=== PATIENT | female | born 1990 | race Caucasian/White ===

== ENCOUNTER 2017-11-04 08:43 | Emergency (ER) | payer OTHER, MEDICAID, SELFPAY ==
[2017-11-04 08:45] VITALS: BP 125/82; PULSE 92; RESP 18; O2SAT 98; BMI 25.0
--- NOTE | 2017-11-04 09:37 | ED.URI ---
HPI - URI/Sore Throat General Chief Complaint: Upper Respiratory Symptoms Stated Complaint: COLD FOR TWO WEEKS,CHEST PAIN Time Seen by Provider: 11/04/17 09:26 Source: patient Mode of arrival: ambulatory Limitations: no limitations History of Present Illness HPI Narrative: Patient is a 26-year-old female who says that she has been sick for about 3 weeks. She has had upper respiratory like symptoms. She has got some nasal congestion or runny nose. Now she feels like her chest is tight and she cannot breathe. She has not had any fever or productive cough. She admits to smoking daily but no other medical history. She says yesterday she lost her voice some today is a little bit better. Mild sore throat. MD Complaint: cough, sore throat and nasal congestion Severity: mild Associated symptoms: voice changes and nasal congestion Related Data Previous Rx's Medication Instructions Recorded cyclobenzaprine 10 mg PO Q8H PRN #14 tab 09/21/17 ibuprofen 800 mg PO TID PRN #30 tab 09/21/17 albuterol sulfate [Ventolin HFA] 2 puff INHALATION Q4-6H PRN #8 gram 11/04/17 Allergies Allergy/AdvReac Type Severity Reaction Status Date / Time No Known Drug Allergies Allergy Verified 11/04/17 08:48 Review of Systems Review of Systems All systems reviewed & are unremarkable except as noted in HPI and below Constitutional Denies chills, Denies fever(s), Denies lethargy and Denies weakness ENT Ears, Nose, Mouth, and Throat: Denies change in voice, Reports hoarseness (now better), Reports nasal congestion, Reports nasal discharge, Denies neck pain and Reports sore throat Cardiovascular Denies chest pain, Denies irregular heart rhythm, Denies lightheadedness, Denies palpitations and Denies orthopnea Respiratory Reports as per HPI Gastrointestinal Gastrointestinal: Denies abdominal pain, Denies change in bowel habits, Denies diarrhea, Denies nausea and Denies vomiting Musculoskeletal Denies neck pain Integumentary/Breasts Denies pruritus, Denies erythema, Denies rash and Denies wounds Neurologic Denies weakness Endocrine Denies palpitations PFSH Medical History Healthy adult (Acute) Social History Smoking Status: Current every day smoker alcohol intake: never substance use type: does not use Exam Initial Vital Signs Initial Vital Signs: Vital Signs Pulse Rate 92 H 11/04/17 08:45 Respiratory Rate 18 11/04/17 08:45 Blood Pressure 125/82 H 11/04/17 08:45 Pulse Oximetry 98 11/04/17 08:45 GENERAL: Well-appearing, well-nourished and in no acute distress. HEENT: Head atraumatic,EOMI, pupils reactive, no sinus tenderness PHARYNX: No erythema, no tonsillar exudate, no cervical lymphadenopathy CARDIOVASCULAR: Regular rate and rhythm without murmurs, rubs or gallops. RESPIRATORY: Breath sounds equal bilaterally, no wheezes rales or rhonchi. ABDOMEN: Soft, nontender. Normoactive bowel sounds all 4 quadrants. No guarding or rebound. EXTREMITIES: Normal range of motion, no clubbing or edema. Neurovascularly intact NEUROLOGICAL: Alert and oriented x4.Normal gait and speech. SKIN: Warm, dry, no laceration, no petechiae, no rashes or lesions. Course Orders Ordered: Discontinued Medications Albuterol/Ipratropium (Duoneb) 3 ml INH NOW ONE Stop: 11/04/17 09:37 Last Admin: 11/04/17 09:58 Dose: 3 ml Vital Signs - 8 hr 11/04/17 08:45 11/04/17 09:59 11/04/17 10:04 Pulse Rate 92 H 70 84 Respiratory Rate 18 16 18 Blood Pressure 125/82 H Blood Pressure [Right Arm] 110/53 L Pulse Oximetry 98 100 100 Discharge Plan Departure Patient Disposition: Home, Self-Care Clinical Impression: Upper respiratory infection Discharge Date/Time: 11/04/17 10:12 Interventions: ED Discharge Assessment Last Done: 11/04/17 10:11 Instructions: DI for Viral Upper Respiratory Infection -- Adult Activity Restrictions/Additional Instructions: *You have been diagnosed with upper respiratory infection *What to do: At this time no antibiotics are indicated. This likely a combination of a virus and no allergies. Recommend [id number] allergy medicine. *Continue to take medications as directed Albuterol with spacer every 4 hr if needed for chest tightness or shortness of breath, use with spacer. This prescription has been sent to [facility] in [place] *Follow up with your primary care provider in 2-3 days *Return to ER if you should have any new, worsening or concerning symptoms Prescriptions: New albuterol sulfate [Ventolin HFA] 90 mcg/actuation HFA aerosol inhaler 2 puff INHALATION Q4-6H PRN (Reason: shortness of breath or wheezing) Qty: 8 RF: 0 No Action ibuprofen 800 mg tablet 800 mg PO TID PRN (Reason: pain) Qty: 30 RF: 0 cyclobenzaprine 10 mg tablet 10 mg PO Q8H PRN (Reason: muscle spasm) Qty: 14 RF: 0
[2017-11-04] MEDS: ALBUTEROL/IPRATROPIUM 3 ML AMPUL INH (09:58)
[2017-11-04 09:59] VITALS: PULSE 70; RESP 16; O2SAT 100
[2017-11-04 10:04] VITALS: BP 110/53; PULSE 84; RESP 18; O2SAT 100
== END 2017-11-04 10:12 | disposition home or self-care (01) ==
LOC: ED 10:11
PROVIDERS: Emergency Provider Emergency Medicine; Family Provider Family Medicine; PCP Family Medicine
DX: J06.9 Acute upper respiratory infection, unspecified (principal)
CPT/HCPCS: 94640; 99282; 99283

== ENCOUNTER → 2017-12-05 16:53 | Outpatient (CLI) | payer OTHER, MEDICAID, SELFPAY | PROVIDERS: Family Provider Family Medicine; PCP Family Medicine; Visit Provider Physician Assistant | DX: R30.0 Dysuria (principal) | CPT/HCPCS: 87077; 87086; 87186 ==

== ENCOUNTER → 2018-04-03 10:41 | Outpatient (CLI) | payer OTHER, MEDICAID, SELFPAY ==
--- NOTE | 2018-04-03 10:42 | DI.US.S_ITS ---
PROCEDURE: US OB <= 14 WEEKS FETUS INDICATIONS: DATES OUTSIDE/PRIOR DATING DATA: Last menstrual period (LMP): Unknown. LMP-based estimated date of delivery (MALIK): N./A.. First dating scan (date and location): 04/03/18. Estimated date of delivery (MALIK) from first dating scan: 11/23/18. TECHNIQUE: Real-time scanning was performed of the fetus and maternal pelvic organs, with image documentation. Endovaginal scanning was also performed to better visualize the fetus and maternal ovaries. COMPARISON: None. FINDINGS: Embryo: [place]-rump length measures 7 mm corresponding to 6 weeks 4 days. Heart rate measures 124 beats per minute. Measurement variability in dating: +/- 4 weeks by LMP, +/- 7 days by mean sac diameter (use before 6 weeks gestation if crown-rump length not able to be measured), +/- 5 days by crown-rump length (up to 8 weeks 6 days gestation), +/- 7 days by crown-rump length (up to 13 weeks 6 days gestation). Maternal organs: Ovaries within normal limits, with a corpus luteal cyst measuring 20 mm. Limited images through the kidneys demonstrate no hydronephrosis. IMPRESSION: 6 week 4 day single living IUP. Dictated by: Karthik Ramírez A Interpreted: Vera Ron MD on 04/03/2018 at 11:33 Approved by: Vera Ron M.D. on 04/03/2018 at 15:39
[2018-04-03 12:22] LABS: Appearance Urine UA CLEAR; Bilirubin Urine UA NEGATIVE (NEGATIVE); Color Urine UA YELLOW; Glucose Urine UA NEGATIVE (Normal); Ketones Urine UA NEGATIVE (NEGATIVE); Leukocyte Esterase Urine UA NEGATIVE (NEGATIVE); Nitrite Urine UA NEGATIVE (Negative); Occult Blood Urine UA 1+ (Negative); Protein Urine UA NEGATIVE (Negative); Specific Gravity Urine UA 1.015 (1.000-1.035); Urobilinogen Urine UA 0.2 E.U./dL (0.2)
[2018-04-03 12:40] LABS: Add Manual Diff / Slide Review NO; Basophils Percent Auto 0.3 % (0-2); Eosinophils Percent Auto 0.6 % (2-4); Hematocrit 38.3 % (36-46); Hemoglobin 13.8 g/dL (12.0-16.0); Lymphocytes Percent Auto 17.3 % (25-40); Mean Corpuscular HGB Conc 35.9 % (30-36); Mean Corpuscular Hemoglobin 30.5 PG (26-34); Mean Corpuscular Volume 84.8 fL (80-100); Monocytes Percent Auto 6.1 % (3-14); Neutrophils Absolute Auto 5800 /uL (3000-5900); Neutrophils Percent Auto 75.7 % (50-75); Platelet Count 240 X10^3/uL (150-400); Red Blood Cell Count 4.51 X10^6/uL (4.0-5.2); Red Cell Distribution Width 14.1 % (11.6-14.8); White Blood Cell Count 7.6 X10^3/uL (4.5-11.0)
[2018-04-03 13:58] LABS: Hepatitis B Surface Antigen NEGATIVE s/c (NEGATIVE); Rubella Antibody IgG 50.6 IU/mL (>15)
[2018-04-03 14:17] LABS: HIV 1 and 2 Antibody NEGATIVE (NEGATIVE); Hep C Virus Ab w/Reflex Quant NEGATIVE s/c (NEGATIVE)
[2018-04-05 14:05] LABS: HSV 2 IGG AB < 0.90 index (< 0.90)
[2018-04-05 15:40] LABS: RPR Screen Nonreactive (Nonreactive)
== END ==
PROVIDERS: Visit Provider Family Medicine
DX: Z34.81 Encounter for supervision of other normal pregnancy, first trimester (principal); Z3A.01 Less than 8 weeks gestation of pregnancy
CPT/HCPCS: 36415; 76801; 76817; 80055; 81003; 86695; 86696; 86703; 86787; 86803; 86850; 86900; 86901; 87086

== ENCOUNTER → 2018-07-03 08:45 | Outpatient (CLI) | payer OTHER, MEDICAID, SELFPAY ==
[2018-07-08 10:39] LABS: AFP, Serum 49.4 ng/mL; Calc Gestational Age 19.6; Cigarette Smoker N; Donated Egg NOT GIVEN; Donor Egg Age NOT GIVEN; Estriol, Free 1.87 ng/mL; Inhibin A, Dimeric 113 pg/mL; Maternal Weight 155 lbs; Number of Fetuses 1; Previous Pregnancy Down Syndro NOT GIVEN
== END ==
PROVIDERS: Visit Provider Family Medicine
DX: Z3A.16 16 weeks gestation of pregnancy (principal)
CPT/HCPCS: 36415; 82105; 82677; 84702; 86336

== ENCOUNTER → 2018-07-05 11:43 | Outpatient (CLI) | payer OTHER, MEDICAID, SELFPAY | PROVIDERS: Visit Provider Family Medicine | DX: R31.9 Hematuria, unspecified (principal) | CPT/HCPCS: 87086 ==

== ENCOUNTER → 2018-07-16 10:37 | Outpatient (CLI) | payer OTHER, MEDICAID, SELFPAY ==
--- NOTE | 2018-07-16 10:38 | DI.US.S_ITS ---
PROCEDURE: US OB >= 14 WEEKS FETUS INDICATIONS: ANATOMY SCREENING OUTSIDE/PRIOR DATING DATA: Last menstrual period (LMP): Unknown. LMP-based estimated date of delivery (MALIK): Cannot be calculated. First dating scan (date and location): [facility], 04/03/18. Estimated date of delivery (MALIK) from first dating scan: 11/23/18. TECHNIQUE: Real-time scanning was performed of the fetus, with image documentation and biometric measurements. COMPARISON: [facility], OB <= 14 WEEKS FETUS, 04/03/2018, 11:04. [facility], PELVIC COMPLETE, 10/27/2016, 8:03. [facility], ABDOMEN LIMITED, 05/06/2016, 9:02. [facility], OB COMPLETE 14WKS OR MORE, 05/08/2014, 10:30. FINDINGS: General: A single living intrauterine gestation is present. Presentation: Breech. Placenta: Placental position is anterior, without previa. Amniotic fluid index: 15.0 cm. heart rate: 137 beats per minute. Maternal cervical canal: 3.9 cm long. Maternal organs: Left ovary measures 3.2 x 1.8 x 1.3 cm. There is a 1.1 x 0.8 x 1.0 cm oval circumscribed anechoic cyst with increased posterior acoustic enhancement and no vascularity on Doppler ultrasound, consistent with a simple left ovarian cyst. Right ovary measures 2.8 x 1.4 x 1.8 cm. biometrics: Biparietal diameter: 4.9 cm for a calculated gestational age of 20 weeks 6 days. Head circumference: 19.1 cm for a calculated gestational age of 21 weeks 2 days. Abdominal circumference: 16.2 cm for a calculated gestational age of 21 weeks 2 days. Femur length: 3.4 cm for a calculated gestational age of 20 weeks 4 days. Estimated gestational age from initial scan: 21 weeks 3 days. Composite gestational age from present scan: 21 weeks zero days. Estimated weight and percentile: 392 g, at the 24th percentile for gestational age. Measurement variability for biometric dating: +/- 7 days from 14 weeks to 15 weeks 6 days gestation, +/- 10 days from 16 weeks to 21 weeks 6 days gestation, +/- 2 weeks from 22 weeks to 27 weeks 6 days gestation, +/- 3 weeks for 28 weeks gestation or later. weight reference: 4500 g or EFW >90/95% is considered macrosomia or large for gestational age. EFW <10% is small for gestational age. EFW 5% or less is considered intra-uterine growth restriction. Anatomic survey: Neuro: Ventricles are non-dilated at 6 mm. Cisterna magna is normal at 5 mm. Cerebellum is normal in size and morphology. Nuchal skin fold: Normal at 3 mm. Face: Nose, and lips, and nasal bone identified. Spine: No evidence for spina bifida. Heart: 4-chambered heart is present. The ventricular outflow tracts are partially imaged on this exam, but the imaged portions appear unremarkable. Diaphragm: Diaphragm is intact. Stomach: Left-sided stomach is present. Kidneys: No hydronephrosis. Cord: 3-vessel cord has orthotopic insertion. Bladder: Normal in size. Extremities: All 4 extremities identified. IMPRESSION: Single intrauterine gestation with measured heart rate of 137 beats per minute, composite gestational age from present scan of 21 weeks zero days, and estimated weight at the 24th percentile for gestational age. Dictated by: Ariel Isidro M.D. on 07/16/2018 at 16:01 Approved by: Ariel Isidro M.D. on 07/16/2018 at 16:16
[2018-08-14 19:30] LABS: Appearance Urine UA CLEAR; Bilirubin Urine UA NEGATIVE (NEGATIVE); Color Urine UA YELLOW; Glucose Urine UA NEGATIVE (Negative); Ketones Urine UA NEGATIVE (NEGATIVE); Leukocyte Esterase Urine UA NEGATIVE (NEGATIVE); Nitrite Urine UA NEGATIVE (Negative); Occult Blood Urine UA TRACE-LYSED (Negative); Protein Urine UA NEGATIVE (Negative); Specific Gravity Urine UA 1.025 (1.000-1.035); Urobilinogen Urine UA 0.2 E.U./dL (0.2); pH Urine UA 6.5 (4.5-8.0)
--- NOTE | 2018-08-15 10:36 | PM.OBTRLD ---
Visit Information Visit Information Date of evaluation: 08/14/18 Primary OB Provider: Maral Hunter On-call OB Provider: Bess Staley Reason for Evaluation: Yes pre-term labor Comments/Additional reasons for admission: vaginal bleeding Vital Signs Vital Signs: BP 145/81, P 93 PFSH Social History (Updated 11/04/17 @ 09:40 by Ivania Mcgill DO) marital status: unmarried,single number of children: 2 Smoking Status: Unknown if ever smoked alcohol intake: former substance use type: does not use Objective Labs Labs: Laboratory Results - last 24 hr 08/14/18 19:11 Urine Color Yellow Urine Appearance Clear Urine pH 6.5 Ur Specific [place] 1.025 Urine Protein Negative Urine Glucose (UA) Negative Urine Ketones Negative Urine Occult Blood Trace-lysed Urine Nitrate Negative Urine Bilirubin Negative Urine Urobilinogen 0.2 Ur Leukocyte Esterase Negative Evaluation Evaluation Baseline heart rate: 150 Variability: Moderate (11-25) monitor accelerations: Present monitor decelerations: Absent Contraction Frequency (minutes): 0 Laboratory results: Laboratory Tests 08/14/18 19:11 Urine Color Yellow Urine Appearance Clear Urine pH 6.5 Ur Specific [place] 1.025 Urine Protein Negative Urine Glucose (UA) Negative Urine Ketones Negative Urine Occult Blood Trace-lysed Urine Nitrate Negative Urine Bilirubin Negative Urine Urobilinogen 0.2 Ur Leukocyte Esterase Negative Diagnosis, Plan/Disposition Final Diagnosis (1) Vaginal bleeding during , antepartum: Current Visit: No Status: Acute (2) 25 weeks gestation of : Current Visit: No Status: Acute Plan/Disposition Plan: No obvious bleeding or contractions. Likely from intercourse yesterday. Pt reasurred. OB Disposition: home
== END ==
LOC: US 10:38 → LABOR 08-14 18:43 → US 08-15 14:34
PROVIDERS: Specialist; Visit Provider Family Medicine
DX: Z36.89 Encounter for other specified antenatal screening (principal); Z3A.21 21 weeks gestation of pregnancy
CPT/HCPCS: 59025; 59050; 76811; 81003; G0378

== ENCOUNTER → 2018-08-14 18:33 | Outpatient (CLI) | payer OTHER, MEDICAID, SELFPAY | PROVIDERS: Visit Provider Specialist | DX: O46.92 Antepartum hemorrhage, unspecified, second trimester (principal); Z3A.25 25 weeks gestation of pregnancy | CPT/HCPCS: 59025; 59050; 81003; G0378 ==

== ENCOUNTER → 2018-09-17 07:56 | Outpatient (CLI) | payer OTHER, MEDICAID, SELFPAY ==
[2018-09-17 11:23] LABS: Hematocrit 33.2 % (36-46); Hemoglobin 11.7 g/dL (12.0-16.0)
[2018-09-17 11:37] LABS: GTT (PREG) 1 Hour PP 50gm Dose 98 mg/dL (76-139)
== END ==
PROVIDERS: Visit Provider Family Medicine
DX: Z34.83 Encounter for supervision of other normal pregnancy, third trimester (principal); Z3A.28 28 weeks gestation of pregnancy
CPT/HCPCS: 36415; 82950; 85014; 85018

== ENCOUNTER → 2018-10-29 11:55 | Outpatient (CLI) | payer OTHER, MEDICAID, SELFPAY ==
[2018-10-30 12:35] LABS: Strep Grp B PCR NEG for Grp B Strep
== END ==
PROVIDERS: Visit Provider Family Medicine
DX: Z3A.36 36 weeks gestation of pregnancy (principal)
CPT/HCPCS: 87653

== ENCOUNTER 2018-11-26 17:55 | Inpatient (IN) | payer OTHER, MEDICAID, SELFPAY ==
[2018-11-26 18:50] VITALS: BP 128/78
[2018-11-26 20:13] LABS: Add Manual Diff / Slide Review NO; Basophils Absolute Auto 0 /uL (0-100); Basophils Percent Auto 0.5 % (0-2); Eosinophils Absolute Auto 0 /uL (0-450); Eosinophils Percent Auto 0.5 % (2-4); Hematocrit 31.4 % (36-46); Lymphocytes Absolute Auto 1700 /uL (1100-4500); Lymphocytes Percent Auto 21.2 % (25-40); Mean Corpuscular HGB Conc 35.2 % (30-36); Mean Corpuscular Volume 82.4 fL (80-100); Monocytes Absolute Auto 700 /uL (0-900); Monocytes Percent Auto 8.6 % (3-14); Neutrophils Absolute Auto 5500 /uL (1500-7000); Neutrophils Percent Auto 69.2 % (50-75); Platelet Count 268 X10^3/uL (150-400); Red Blood Cell Count 3.81 X10^6/uL (4.0-5.2); Red Cell Distribution Width 15.6 % (11.6-14.8)
[2018-11-26] MEDS: DINOPROSTONE VAG (CERVIDIL) 10 MG VAG (20:29)
[2018-11-27] MEDS: ZOLPIDEM 5 MG TABLET PO (01:25)
[2018-11-27] MEDS: ACETAMINOPHEN 325 MG TABLET 650 MG PO (01:25)
--- NOTE | 2018-11-27 07:40 | PM.OBHP.1 ---
OB HPI Date/Time Date of admission: 11/26/18 Date Patient Seen: 11/27/18 Time Patient Seen: 07:30 History of Present Condition Chief complaint: Induction : 3 Para: 2 Estimated Date of Delivery: 11/23/18 Estimated Gestational Age (weeks): 40w 4d Narrative: Marisela Jeronimo is a 27 year old at 40 weeks and 4 days gestation. has been uncomplicated. She came in last night for Cervidil for elective induction. Unfortunately she did not sleep well overnight but otherwise denies complaints. Indications Indication for induction OB: post dates History of Present care: good care, initiated at week # (7), number of visits (12) and pounds weight gain (24) Dating criteria: based on 1st trimester US only (Discordant with LMP) Ultrasounds: normal 1st trimester US and normal mid trimester US Obstetrical complications: none Medical complications: none Preadmission Labs Blood type: A (+) positive -: Antibody screen: negative, GBS status: negative, HBsAG: negative, HIV: negative, HSV 1: positive, HSV 2: negative and RPR/VDLR: negative -: Chlamydia screen: not detected and Gonorrhea screen: not detected -: Rubella: immune and Varicella: immune HCT: 38.3 HCAB: negative PAP: Abnormal (LGSIL +HPV, colpo in , needs bx ) Quad screen: Normal 1 hr GTT: 98 Prior (ies) History: 07/28/13 at 40 weeks 7 lb 3 oz male, epidural 09/19/14 at 39 weeks 8 lb female, epidural Evaluation Evaluation Baseline heart rate: 130 Variability: Moderate (11-25) monitor accelerations: Present monitor decelerations: Absent Uterine Contraction Intensity: Mild Category of Tracing: I Cervical dilation (cm): 2 Cervical effacement (%): 50 station: -2 Laboratory results: Laboratory Tests 11/26/18 11/26/18 19:53 19:53 WBC 8.0 RBC 3.81 L Hgb 11.0 L Hct 31.4 L MCV 82.4 MCH 29.0 MCHC 35.2 RDW 15.6 H Plt Count 268 Neut % (Auto) 69.2 Lymph % (Auto) 21.2 L [place] % (Auto) 8.6 Eos % (Auto) 0.5 L Baso % (Auto) 0.5 Neut # (Auto) 5500 Lymph # (Auto) 1700 [place] # (Auto) 700 Eos # (Auto) 0 Baso # (Auto) 0 Blood Type A Positive Antibody Screen Negative [facility] Medical History Depression (Chronic) Healthy adult (Chronic) Vaginal delivery (Resolved ~2013) Vaginal delivery (Resolved ~2014) Social History (Updated 11/04/17 @ 09:40 by Ivania Mcgill DO) marital status: unmarried,single number of children: 2 Smoking Status: Former smoker alcohol intake: former substance use type: does not use Social History marital status: unmarried,single number of children: 2 Smoking Status: Former smoker alcohol intake: former substance use type: does not use Meds Home Medications Medication Instructions Recorded Confirmed Type cyclobenzaprine 10 mg PO Q8H PRN #14 tab 09/21/17 12/05/17 Rx albuterol sulfate [Ventolin HFA] 2 puff INHALATION Q4-6H PRN #8 gram 11/04/17 12/05/17 Rx citalopram 20 mg tablet 20 mg PO DAILY 12/05/17 12/05/17 History amoxicillin 875 mg-potassium 1 tab PO BID #20 tab 10/31/18 Rx clavulanate 125 mg tablet Allergies Allergy/AdvReac Type Severity Reaction Status Date / Time No Known Drug Allergies Allergy Verified 11/27/18 02:51 Review of Systems Constitutional Constitutional: Denies fatigue and Denies fever(s) Respiratory Respiratory: Denies cough Gastrointestinal Gastrointestinal: Denies abdominal pain Endocrine Endocrine: Denies fatigue Exam Const General: healthy appearing and comfortable [facility] Head: normal to inspection Ears: hearing grossly normal bilaterally Nose: external nose normal Face and sinus: normal facial exam Mouth: oral mucosae normal Eyes General: appearance normal, both eyes and all related structures Neck Neck: normal visual inspection Resp Effort & Inspection: normal respiratory effort Auscultation: clear to auscultation bilaterally Cardio Rate: regular rate Rhythm: regular rhythm Heart Sounds: no murmurs External Female Exam: external appearance normal Manual OB Exam: dilated 2, effaced 50% and station -2 Presentation: vertex Estimated Weight (lbs): 7 Objective Labs Result Diagrams: 11/26/18 19:53 Labs: Laboratory Results - last 24 hr 11/26/18 11/26/18 19:53 19:53 WBC 8.0 RBC 3.81 L Hgb 11.0 L Hct 31.4 L MCV 82.4 MCH 29.0 MCHC 35.2 RDW 15.6 H Plt Count 268 Neut % (Auto) 69.2 Lymph % (Auto) 21.2 L [place] % (Auto) 8.6 Eos % (Auto) 0.5 L Baso % (Auto) 0.5 Neut # (Auto) 5500 Lymph # (Auto) 1700 [place] # (Auto) 700 Eos # (Auto) 0 Baso # (Auto) 0 Blood Type A Positive Antibody Screen Negative Assessment and Plan Assessment and Plan Assessment and Plan narrative: 27-year-old at 40 weeks and 4 days gestation. Here for elective induction for patient and provider schedules. GBS negative. Maciel score of 7 this morning after Cervidil overnight. Plan Start pitocin Epidural upon request Desires tubal ligation. Consent signed. Dr. Osman (on-call OB-RN CVICU) aware, will let her know when patient delivers.
[2018-11-27] MEDS: LACTATED RINGERS 1,000 ML 100 ML IV ×2 (08:24→10:36)
[2018-11-27] MEDS: OXYTOCIN PREMIX 30 UNIT/500 ML PLAST..BAG IV (08:28)
--- NOTE | 2018-11-27 18:04 | PM.OBPRVD ---
Delivery date: 11/27/18 Cervical ripening method: per misoprostal protocol Induction method: per pitocin protocol Delivery augmentation: rupture of membranes Delivery monitor: external FHT Route of delivery: L&D Laceration Description: None Estimated blood loss (mL): 100 Anesthesia type: Epidural Narrative: BRIEF HISTORY: Patient is a 27-year-old G 3 P 2 at 40 weeks and 4 days who gave on 11/27/18 at 17:32. MALIK: 11/23/18 Hospital problems: 40 weeks of Epidural analgesia STAGE I: Labor Active labor began 11/27/18 at 12:20 p.m. after Pitocin per protocol. Patient received an epidural for pain control. AROM at 14:32 with clear fluid. She was complete at 17:19. heart tones were category 1 and 2 throughout stage I due to intermittent variable decelerations. Stage I duration 5 hours. STAGE II: Delivery Spontaneous vaginal delivery occurred at 5:32 p.m.. Infant was vertex and AKHIL. A nuchal cord x1 was reduced. was immediately placed on mother's abdomen. Cord was clamped and cut after 1 minutes delay. Apgars were 9 and 9 at 1 and 5 minutes. No resuscitation of the required. Second stage duration 13 minutes. STAGE III: Placenta/Cord Placenta delivered spontaneously after active management at 5:41 p.m. and appeared intact with a three-vessel cord. No lacerations. Fundus was firm at umbilicus. Hemostasis achieved. EBL: 100 mL. Needle and sponge counts were correct. The vagina was inspected and no items were left in situ. Patient was doing well with Amber, her and at bedside. [place] Baby 1: Infant gender: Female Presentation: vertex Placenta delivery description: Spontaneous cord vessel description: Nuchal Cord (X1, reduced) score (1 min): 9 score (5 min): 9
[2018-11-27 19:22] LABS: Add Manual Diff / Slide Review NO; Basophils Absolute Auto 100 /uL (0-100); Basophils Percent Auto 0.5 % (0-2); Eosinophils Absolute Auto 0 /uL (0-450); Hematocrit 35.4 % (36-46); Lymphocytes Absolute Auto 1000 /uL (1100-4500); Lymphocytes Percent Auto 6.3 % (25-40); Mean Corpuscular Hemoglobin 28.3 PG (26-34); Monocytes Absolute Auto 1000 /uL (0-900); Monocytes Percent Auto 6.5 % (3-14); Neutrophils Absolute Auto 13100 /uL (1500-7000); Neutrophils Percent Auto 86.7 % (50-75); Platelet Count 259 X10^3/uL (150-400); Red Blood Cell Count 4.26 X10^6/uL (4.0-5.2); Red Cell Distribution Width 15.7 % (11.6-14.8); White Blood Cell Count 15.1 X10^3/uL (4.5-11.0)
[2018-11-27] MEDS: ONDANSETRON 4 MG/2 ML INJ IV (19:29)
[2018-11-27 19:32] LABS: Albumin 3.3 g/dL (3.5-5.0); Alkaline Phosphatase 171 U/L (38-126); Aspartate Aminotransferase 25 IU/L (14-36); Bilirubin Total 0.4 mg/dL (0.2-1.3); Blood Urea Nitrogen 9 mg/dL (7-17); Calcium 8.8 mg/dL (8.4-10.2); Carbon Dioxide 26 mmol/L (22-32); Chloride 106 mmol/L (98-107); Estimated Glomerular Filt Rate > 60.0 mL/min (>60); Globulin 3.2 g/dL (1.7-4.1); Glucose 81 mg/dL (70-100); HEMOLYSIS < 15 (0-50); Potassium 3.7 mmol/L (3.4-5.1); Sodium 139 mmol/L (137-145); Total Protein 6.5 g/dL (6.3-8.2)
[2018-11-27 19:39] LABS: Creatinine Urine Random 39.3 mg/dL; Protein (Total) Urine Random 21 mg/dL (0-12); Protein Creatinine Ratio Urine 0.53 GRAM/24H
[2018-11-27 20:12] LABS: Alanine Aminotransferase 11 IU/L (9-52)
[2018-11-27] MEDS: IBUPROFEN 600 MG TABLET PO (20:14)
--- NOTE | 2018-11-28 | PATH_ITS ---
[facility] Accession Number: [id number] . 01 Material submitted: . fallopian tube - BILATERAL FALLOPIAN TUBE SEGMENTS . 01 Clinical history: . TUBAL LIGATION . 02 Diagnosis: Bilateral Fallopian Tube Segments, Bilateral Tubal Ligation: Complete cross-sections of segments of fallopian tube x2. MRV/12/02/2018 . 02 Electronically signed: . Apple Gallardo MD, Pathologist NPI- [id number] . 01 Gross description: . Received in formalin, labeled with the patient's name and bilateral fallopian tube segments, are two segments of fallopian tube without fimbriated ends measuring 1.7 cm in length by 0.5 cm in diameter and 1.2 cm in length by 0.4 cm in diameter. The specimens are separately submitted in two cassettes to be cut by histology. (SARAH:[id number]) /MRV . 02 Pathologist provided ICD-10: Z30.2 . 02 CPT . 884259 Performed at: 01 [facility] [address] [facility], [place], [place] [id number] MD Srinivas Arteaga MD Phone: [phone] Performed at: 02 [facility] [address] [place], [place] [id number] MD Simin Sims MD Phone: [phone]
[2018-11-28] MEDS: IBUPROFEN 600 MG TABLET PO ×3 (02:19→15:04)
[2018-11-28 10:27] VITALS: BMI 28.9
[2018-11-28 10:33] VITALS: BP 129/86; PULSE 69; RESP 14; TEMP 36.5; O2SAT 99
--- NOTE | 2018-11-28 10:37 | PM.PREOP ---
Pre-operative Note Interval Note History & Physical reviewed/Exam performed by Physician: Yes Changes to H&P: No
--- NOTE | 2018-11-28 10:42 | SUR.OPER ---
Supine on padded OR bed, head on pillow, arms secured on padded arm boards at <90 degrees abduction, legs uncrossed, safety belt at thigh, tape over blanket over lower legs.
[2018-11-28] MEDS: BUPIVACAINE 0.5% W/ EPI (PF) VIAL 30 ML INJ (11:35)
[2018-11-28 11:48] VITALS: BP 134/84; PULSE 93; RESP 16; TEMP 36.6; O2SAT 98
[2018-11-28 11:53] VITALS: BP 135/96; PULSE 86; RESP 10; O2SAT 99
[2018-11-28 12:00] VITALS: BP 128/80; PULSE 87; RESP 12; O2SAT 98
[2018-11-28 12:10] VITALS: BP 132/81; PULSE 88; RESP 14; TEMP 36.6; O2SAT 99
--- NOTE | 2018-11-28 13:08 | P.DS_ITS ---
History of Present Illness Chief complaint: Induction Discharge Providers Date of admission: 11/26/18 17:55 Discharge Date: 12/02/18 Consults: 11/27/18 19:13 Consult to [employer] Routine Comment: Discharge provider: Lan Gibson MD Summary Discharge Diagnosis: 27-year-old status post vaginal delivery viable female infant G3 para 240 week gestational age induction of labor Status post bilateral tubal ligation Routine care Hospital Course: Patient admitted the hospital for induction of labor. Patient had successful induction with delivery of viable female . Had routine care. During hospital stay she had a bilateral tubal ligation done without complication. Patient was eating ambulating pain was well controlled by the time of discharge. Patient's vital signs were stable she was afebrile. Exam Vital Signs (past 8 hours): - 11/28/18 10:33 11/28/18 11:48 11/28/18 11:53 Temperature 97.7 F 97.8 F Pulse Rate 69 93 H 86 Respiratory Rate 14 16 10 L Blood Pressure 129/86 134/84 135/96 H Pulse Oximetry 99 98 99 11/28/18 12:00 11/28/18 12:10 Temperature 97.8 F Pulse Rate 87 88 Respiratory Rate 12 14 Blood Pressure 128/80 132/81 Pulse Oximetry 98 99 Oxygen Delivery Method Room Air Narrative Exam Narrative: General: Alert no apparent distress. Affect is appropriate. Miguel it is uncomfortable. HEENT: Neck is supple without lymphadenopathy pupils equal round and reactive. Cardio: S1-S2 regular rate and rhythm. Respiratory: Lungs clear to auscultation. Abdomen: Uterus firm. Incision clean dry and intact. Extremities: Normal deep tendon reflexes trace edema. Objective Labs Result Diagrams: 11/27/18 19:08 11/27/18 19:08 Labs: Laboratory Results - last 24 hr 11/27/18 11/27/18 11/27/18 19:00 19:08 19:08 WBC 15.1 H D RBC 4.26 Hgb 12.0 Hct 35.4 L MCV 83.0 MCH 28.3 MCHC 34.0 RDW 15.7 H Plt Count 259 Neut % (Auto) 86.7 H Lymph % (Auto) 6.3 L [place] % (Auto) 6.5 Eos % (Auto) 0.0 L Baso % (Auto) 0.5 Neut # (Auto) 91152 H Lymph # (Auto) 1000 L [place] # (Auto) 1000 H Eos # (Auto) 0 Baso # (Auto) 100 Sodium 139 Potassium 3.7 Chloride 106 Carbon Dioxide 26 BUN 9 Creatinine 0.50 L Estimated GFR > 60.0 BUN/Creatinine Ratio 18.0 Glucose 81 Calcium 8.8 Total Bilirubin 0.4 AST 25 ALT 11 Alkaline Phosphatase 171 H Total Protein 6.5 Albumin 3.3 L Globulin 3.2 Albumin/Globulin Ratio 1.0 U Random Total Protein 21 H Urine Creatinine 39.3 Protein/Creatinin Ratio 0.53 Discharge Plan Discharge Plan Patient Disposition: Home Discharge Med Rec/Prescriptions Prescriptions: New oxycodone-acetaminophen [Percocet] 5-325 mg tablet 1 tab PO Q4-6H PRN (Reason: pain) Qty: 14 RF: 0 Follow up/Referrals: Maral Hunter DO [Physician] - 6 Weeks Skin/Wound/Dressing Care Dressing: Remove outer plastic dressing and guaze tomorrow after a shower Visit Report/Discharge Packet Instructions: DI for Tubal Ligation Stand Alone Forms: Discharge: Care Discharge Data Attending Provider: Maral Hunter Admit Date/Time: 11/26/18 17:55 Discharges patient from system. Discharge Date/Time: 11/28/18 20:10
[2018-11-28] MEDS: OXYCODONE/ACETAMINOPHEN 5/325 TABLET 1 TAB PO ×2 (13:20→15:01)
[2018-11-28 19:12] VITALS: BP 132/81; PULSE 88; RESP 14; TEMP 36.6
[2018-11-28] MEDS: LANOLIN OINT 7 GM 1 APPLIC TOP (19:27)
--- NOTE | 2018-11-30 03:15 | P.OP_ITS ---
Operative Date/Time/Diagnoses Date of procedure: 11/28/18 Time of procedure: 11:30 Pre-op diagnosis: Multiparity Desires permanent sterilization Post-op diagnosis: same Procedure: Procedures Operation Date: 11/28/18 10:15 Actual Procedures Side Surgeon p Post Bilateral Tubal Ligation Vane Osman MD Indications: Multiparity Desires permanent sterilization Surgeon: Vane Osman Anesthesia Type: General Operative Notes Findings: Normal uterus, tubes, and ovaries Closure Type: primary Specimen(s): portion of left tube and portion of right tube Estimated blood loss (mL): 5 Blood products transfused: none Procedure in detail: After informed consent was obtained, the patient was taken to the operating room where she was placed in the dorsal supine position. After adequate general endotracheal anesthesia was achieved, she was prepped and drap ed in the usual sterile fashion. A timeout was performed. 6 mL of half percent Marcaine with epinephrine were injected in the umbilical fold. A 2 cm incision was made. This was carried down to the underlying layer fascia. The fascia was nicked in the midline and the incision extended bilaterally with the Hunt scissors. The peritoneum was grasped between 2 hemostats and entered sharply with the Metzenbaum scissors. The left tube was grasped with a Leroy and carried out to the fimbriated end. [address] to the distal end a 2- 1/2 cm segment of tube was ligated with O-plain chromic x 2. A 1 cm segment of tube was excised. The ends of the tube were cauterized for hemostasis. The left tube was returned to the peritoneal cavity. This was repeated on the patient's right tube. Hemostasis was achieved. The fascia was reapproximated with 0 Vicryl. The subcutaneous layer was reapproximated with 3-0 Vicryl with 2 simple interrupted sutures. The skin was closed with 4-0 Biosyn in a sub cuticular fashion. Steri-Strips, 2 x 2's, and an OpSite were placed. Sponge, lap, and instrument counts were correct x-2. The patient tolerated the procedure well, was taken to PACU in stable condition. Complications: none Post-operative Condition: stable Disposition: PACU Plan for aftercare: To the center after recovery
== END 2018-11-28 20:10 | disposition home or self-care (01) | DRG 541 ==
PROVIDERS: Obstetrics & Gynecology; Admitting Provider Family Medicine; Visit Provider Family Medicine
PROC: 0UB73ZZ Excision of Bilateral Fallopian Tubes, Percutaneous Approach (ICD-10-PCS; CPT 58605; principal; 2018-11-28 10:15)
DX: O48.0 Post-term pregnancy (principal); Z3A.40 40 weeks gestation of pregnancy; Z37.0 Single live birth; O98.32 Other infections with a predominantly sexual mode of transmission complicating childbirth; B00.9 Herpesviral infection, unspecified; O69.81X0 Labor and delivery complicated by cord around neck, without compression, not applicable or unspecified; Z30.2 Encounter for sterilization
CPT/HCPCS: 01967; 36415; 58605; 59050; 59409; 80053; 82570; 84156; 85025; 86850; 86900; 86901; G0379; J2405; J2590; J3010